=== PATIENT | male | born 1965 | race Caucasian/White ===

== ENCOUNTER → 2016-10-28 | Outpatient (CLI) | payer OTHER, MEDICAID ==
--- NOTE | 2016-10-28 10:36 | CPEKG ---
Heart Rate: 58 RR Interval: 1034 P-R Interval: 136 QRSD Interval: 90 QT Interval: 388 QTC Interval: 382 P [place]: 65 QRS [place]: 83 T Wave [place]: 69 EKG Severity - NORMAL ECG - EKG Impression: SINUS RHYTHM Electronically Signed By: Francis Murray 28-Oct-2016 16:09:35
== END ==
LOC: FCP 10:13
PROVIDERS: ATTEND Nurse Practitioner
DX: R07.9 Chest pain, unspecified (principal); R10.13 Epigastric pain; Z87.891 Personal history of nicotine dependence
CPT/HCPCS: 86359-90; 86360-90; 87536-90

== ENCOUNTER → 2016-12-13 | Outpatient (CLI) | payer OTHER, MEDICAID | LOC: BHFA 09:30 | PROVIDERS: ATTEND Internal Medicine Interventional Cardiology | DX: R07.9 Chest pain, unspecified (principal) ==

== ENCOUNTER → 2017-03-16 | Outpatient (CLI) | payer OTHER, MEDICAID | LOC: FIMAGING 14:18 | PROVIDERS: ATTEND Nurse Practitioner | DX: J43.9 Emphysema, unspecified (principal); Z87.891 Personal history of nicotine dependence ==